=== PATIENT | female | born 1935 | race Caucasian/White ===

== ENCOUNTER → 2017-11-03 | Outpatient (CLI) | payer MEDICARE, BC ==
[2017-11-03] MEDS: IOHEXOL 300MG/ML 150 ML BTL (09:27)
[2017-11-03] MEDS: SOD CHLORIDE 0.9% 100 ML (09:28)
== END | disposition home or self-care (01) ==
LOC: C/S 08:47
DX: R10.10 Upper abdominal pain, unspecified (principal)
CPT/HCPCS: 74177